=== PATIENT | female | born 1955 | race Caucasian/White ===

== ENCOUNTER 2020-05-31 09:11 | Outpatient (REF) | payer OTHER, SELFPAY ==
--- NOTE | 2020-05-31 12:58 | MHC.AU.P13 ---
Hearing Aid Evaluation- Binaural Date of Visit: 05/31/20 Director Of Capital Giving Used: Description of Hearing: Mild to moderate SNHL bilaterally Summary: Patient recently had hearing tested at [facility] and received medical clearance. Patient is interested in hearing aids as she has difficulty hearing, especially at work. She has never used hearing aids before. Her insurance doesn't cover hearing aids but she is interested in paying out of pocket. Hearing aid options were discussed. Interested in RIGOBERTO aids, with premium technology. Has difficulty on the phone at work so may benefit from a t-coil program. Patient also has tinnitus and discussed a tinnitus program. Hearing Instrument Selection: Right Ear: Counter Pocket Trimmer: Phonak Model: Zet Universeeo [id number] Battery Size: 312 Color: P6- Silver Lee Material Preparation Worker: Size 1 M Left Ear: Counter Pocket Trimmer: Phonak Model: Zet Universeeo [id number] Battery Size: 312 Color: P6-Silver Lee Material Preparation Worker: Size 1 M Accessories/Assistive Technology: PartnerMic (free with promo) Recommendations: Recommendations: A hearing instrument fitting was scheduled. Recommendations: GRAF fitting scheduled for 06/07/20. Diagnosis Code(s): Primary Diagnosis: H90.3 Bilateral Sensorineural Hearing Loss Secondary Diagnosis: H93.13 Tinnitus, Bilateral Services Performed: Assorted Hearing Aid Service: No Charge Visit Signature: Provider: Naomi Amador, BIBIANA-A
== END 2020-05-31 09:12 | disposition home or self-care (01) ==
LOC: HO.HAP 09:11
PROVIDERS: PCP Internal Medicine; Referring Provider Internal Medicine; Visit Provider Internal Medicine
DX: Z13.89 Encounter for screening for other disorder (principal)
CPT/HCPCS: 92700

== ENCOUNTER 2021-02-27 09:05 | Outpatient (REF) | payer OTHER, SELFPAY ==
[2021-02-27 12:00] LABS: Cholesterol 185 mg/dL; HDL Cholesterol 63 mg/dL; LDL Cholesterol Calculated 107 mg/dl; Triglycerides 76 mg/dL
== END 2021-02-27 09:06 | disposition home or self-care (01) ==
LOC: HO.MANLDS 09:05
PROVIDERS: PCP Internal Medicine; Visit Provider Internal Medicine
DX: Z00.00 Encounter for general adult medical examination without abnormal findings (principal)
CPT/HCPCS: 36415; 80061

== ENCOUNTER 2023-01-28 08:36 | Outpatient (REF) | payer MEDICARE, SELFPAY ==
[2023-01-28 11:27] LABS: MANUAL DIFF FLAG NO
[2023-01-28 11:35] LABS: Basophils Percent Auto 0.7 % (0-2); Eosinophils Absolute Auto 0.1 X10*3/uL (0.0-0.4); Eosinophils Percent Auto 3.4 % (0-4); Hematocrit 35.9 % (37.0-47.0); Hemoglobin 11.5 g/dl (12.0-16.0); Imm Gran Abs Auto 0.01 X10*3/uL (0.00-0.03); Imm Gran Pct Auto 0.2 % (0.0-0.4); Lymphocytes Absolute Auto 1.7 X10*3/uL (1.2-4.9); Lymphocytes Percent Auto 39.7 % (20-40); Mean Corpuscular Hemoglobin 30.3 pg (27.0-33.0); Mean Corpuscular Volume 94.5 fL (80.0-98.0); Monocytes Absolute Auto 0.4 X10*3/uL (0.1-1.2); Monocytes Percent Auto 10.3 % (2-11); Neutrophils Absolute Auto 1.9 x10*3/uL (2.0-8.3); Neutrophils Percent Auto 45.7 % (45-73); Platelet Count 300 X10*3/uL (160-400); Red Cell Distribution Width 13.4 % (11.0-16.0); White Blood Count 4.2 X10*3/uL (4.8-10.8)
[2023-01-28 12:09] LABS: Alanine Aminotransferase 17 U/L (0-31); Albumin Level 4.2 g/dL (3.5-5.0); Alkaline Phosphatase 36 U/L (39-117); Anion Gap 13 (12-20); Aspartate Amino Transferase 21 U/L (5-31); Bilirubin Total 0.5 mg/dL (0.0-1.0); Blood Urea Nitrogen 17 mg/dL (9-16); Calcium 9.6 mg/dL (8.4-10.2); Carbon Dioxide 27 mmol/L (22-29); Chloride 107 mmol/L (96-108); Cholesterol 200 mg/dL; Estimated Glomerular Filt Rate > 60; Glucose Random 90 mg/dL (60-115); HDL Cholesterol 64 mg/dL; LDL Cholesterol Calculated 116 mg/dl; Potassium 4.7 mmol/L (3.3-5.1); Sodium 142 mmol/L (135-145); Total Protein 6.8 g/dL (6.5-8.0); Triglycerides 101 mg/dL
[2023-01-28 12:31] LABS: Vitamin D 25-OH Total 86.2 ng/mL (>30)
== END 2023-01-28 08:37 | disposition home or self-care (01) ==
LOC: HO.MANLDS 08:36
PROVIDERS: Visit Provider Internal Medicine
DX: Z00.00 Encounter for general adult medical examination without abnormal findings (principal); E78.00 Pure hypercholesterolemia, unspecified
CPT/HCPCS: 36415; 80053; 80061; 82306; 85025

== ENCOUNTER 2023-02-05 09:24 | Outpatient (REF) | payer MEDICARE, SELFPAY | END 2023-02-05 09:25 | disposition home or self-care (01) | LOC: HO.MANLDS 09:24 | PROVIDERS: Visit Provider Internal Medicine | DX: D64.9 Anemia, unspecified (principal) | CPT/HCPCS: 36415; 82728; 83540; 85025 ==

== ENCOUNTER 2024-02-04 08:54 | Outpatient (REF) | payer MEDICARE, BC, SELFPAY ==
[2024-02-04 13:22] LABS: MANUAL DIFF FLAG NO
[2024-02-04 13:32] LABS: Basophils Percent Auto 0.8 % (0-2); Eosinophils Absolute Auto 0.1 X10*3/uL (0.0-0.4); Eosinophils Percent Auto 2.3 % (0-4); Hematocrit 36.6 % (37.0-47.0); Hemoglobin 11.7 g/dl (12.0-16.0); Imm Gran Abs Auto 0.01 X10*3/uL (0.00-0.03); Imm Gran Pct Auto 0.3 % (0.0-0.4); Lymphocytes Absolute Auto 1.8 X10*3/uL (1.2-4.9); Lymphocytes Percent Auto 45.5 % (20-40); Mean Corpuscular Hemoglobin 29.8 pg (27.0-33.0); Mean Corpuscular Volume 93.4 fL (80.0-98.0); Mean Platelet Volume 10.3 fL (9.4-12.3); Monocytes Absolute Auto 0.3 X10*3/uL (0.1-1.2); Monocytes Percent Auto 8.2 % (2-11); Neutrophils Absolute Auto 1.7 x10*3/uL (2.0-8.3); Neutrophils Percent Auto 42.9 % (45-73); Platelet Count 298 X10*3/uL (160-400); Red Blood Count 3.92 X10*6/uL (4.20-5.50); Red Cell Distribution Width 13.2 % (11.0-16.0); White Blood Count 3.9 X10*3/uL (4.8-10.8)
[2024-02-04 13:59] LABS: Alanine Aminotransferase 17 U/L (0-31); Albumin Level 4.2 g/dL (3.5-5.0); Alkaline Phosphatase 33 U/L (39-117); Anion Gap 10 (12-20); Aspartate Amino Transferase 25 U/L (5-31); Bilirubin Total 0.4 mg/dL (0.0-1.0); Blood Urea Nitrogen 16 mg/dL (9-16); Calcium 9.4 mg/dL (8.4-10.2); Carbon Dioxide 28 mmol/L (22-29); Chloride 104 mmol/L (96-108); Cholesterol 204 mg/dL (<200); Estimated Glomerular Filt Rate > 60; Glucose Random 81 mg/dL (60-115); HDL Cholesterol 68 mg/dL (>40); LDL Cholesterol Calculated 123 mg/dL (<100); Potassium 4.9 mmol/L (3.3-5.1); Sodium 137 mmol/L (135-145); Total Protein 6.8 g/dL (6.5-8.0); Triglycerides 65 mg/dL (<150)
[2024-02-04 14:15] LABS: Vitamin D 25-OH Total 76.1 ng/mL (>30)
== END 2024-02-04 08:55 | disposition home or self-care (01) ==
LOC: HO.MANLDS 08:54
PROVIDERS: Visit Provider Internal Medicine
DX: Z00.00 Encounter for general adult medical examination without abnormal findings (principal); Z13.6 Encounter for screening for cardiovascular disorders
CPT/HCPCS: 36415; 80053; 80061; 82306; 85025